=== PATIENT | female | born 1935 | race Caucasian/White ===

== ENCOUNTER 2018-11-22 18:45 | Inpatient (IN) | payer OTHER ==
[~2018-11-22] VITALS: Ht 157.5 cm; Wt 78.9 kg
[2018-11-22] MEDS ORDERED: PANADOL EXTRA500 MG (19:17)
[2018-11-27] MEDS ORDERED: SYMBICORT 16010.2 GM IH (13:18)
[2018-11-27] MEDS ORDERED: LEVAQUIN750 MG PO (13:18)
[2018-11-27] MEDS ORDERED: PREDNISONE10 MG PO (13:18)
== END 2018-11-27 16:40 | disposition home or self-care (01) | DRG 194 ==
LOC: ER 18:45 → SEC-K 11-23 09:49 → MEDJ 11-23 09:49 → SEC-K 11-23 15:50 → MEDJ 11-23 17:47
PROVIDERS: ADMIT Internal Medicine
PROC: 3E0F7GC Introduction of Other Therapeutic Substance into Respiratory Tract, Via Natural or Artificial Opening (ICD-10-PCS; principal; 2018-11-23)
PROC: BB24ZZZ Computerized Tomography (CT Scan) of Bilateral Lungs (ICD-10-PCS; 2018-11-23)
PROC: B246ZZZ Ultrasonography of Right and Left Heart (ICD-10-PCS; 2018-11-24)
PROC: 4A033R1 Measurement of Arterial Saturation, Peripheral, Percutaneous Approach (ICD-10-PCS; 2018-11-26)
DX: J16.8 Pneumonia due to other specified infectious organisms (principal); J44.1 Chronic obstructive pulmonary disease with (acute) exacerbation; J90 Pleural effusion, not elsewhere classified; J45.998 Other asthma; I50.89 Other heart failure; J98.01 Acute bronchospasm; S80.211A Abrasion, right knee, initial encounter